=== PATIENT | female | born 1970 | race Caucasian/White ===

== ENCOUNTER → 2016-12-24 | Outpatient (CLI) | payer BC ==
--- NOTE | 2016-12-25 13:08 | MM ---
Reason for exam: screening (asymptomatic). Last mammogram was performed 1 year and 7 months ago. History: Family history of premenopausal breast cancer in sister, breast cancer in sister, and breast cancer in maternal aunt. Took hormonal contraceptives for 18 years. Physical Findings: A clinical breast exam by your physician is recommended on an annual basis and results should be correlated with mammographic findings. MG Screening Mammo w CAD Bilateral CC, MLO, and XCCL view(s) were taken. Prior study comparison: May 23, 2015, bilateral MG screening mammo w CAD. June 01, 2013, bilateral digital screening mammo w/CAD. The breast tissue is heterogeneously dense. This may lower the sensitivity of mammography. There is no discrete abnormality. No significant changes when compared with prior studies. ASSESSMENT: Negative, BI-RAD 1 RECOMMENDATION: Routine screening mammogram of both breasts in 1 year.
== END | disposition home or self-care (01) ==
LOC: RADMAMWWP 09:24
PROVIDERS: ATTEND Obstetrics & Gynecology
DX: Z12.31 Encounter for screening mammogram for malignant neoplasm of breast (principal)

== ENCOUNTER → 2018-12-23 | Outpatient (CLI) | payer BC ==
--- NOTE | 2018-12-24 09:31 | MM ---
Reason for exam: screening (asymptomatic). Last mammogram was performed 2 years ago. History: Family history of premenopausal breast cancer in sister, breast cancer in sister, and breast cancer in maternal aunt. Took hormonal contraceptives for 18 years. Physical Findings: A clinical breast exam by your physician is recommended on an annual basis and results should be correlated with mammographic findings. MG Screening Mammo w CAD Bilateral CC and MLO view(s) were taken. Prior study comparison: December 24, 2016, bilateral MG screening mammo w CAD. May 23, 2015, bilateral MG screening mammo w CAD. The breast tissue is heterogeneously dense. This may lower the sensitivity of mammography. There is no discrete abnormality. ASSESSMENT: Benign, BI-RAD 2 RECOMMENDATION: Routine screening mammogram of both breasts in 1 year.
== END | disposition home or self-care (01) ==
LOC: RADMAMWWP 07:16
PROVIDERS: ATTEND Family Medicine
DX: Z12.31 Encounter for screening mammogram for malignant neoplasm of breast (principal)
CPT/HCPCS: 77067

== ENCOUNTER → 2021-06-26 | Outpatient (CLI) | payer BC ==
--- NOTE | 2021-06-27 13:55 | MM ---
Reason for exam: screening (asymptomatic). Last mammogram was performed 2 years and 6 months ago. History: Patient is postmenopausal and is nulliparous. Family history of premenopausal breast cancer in sister, breast cancer in sister, and breast cancer in maternal aunt. Took hormonal contraceptives for 18 years. Physical Findings: A clinical breast exam by your physician is recommended on an annual basis and results should be correlated with mammographic findings. MG Screening Mammo w CAD Bilateral CC and MLO view(s) were taken. Prior study comparison: December 23, 2018, bilateral MG screening mammo w CAD. December 24, 2016, bilateral MG screening mammo w CAD. The breast tissue is heterogeneously dense. This may lower the sensitivity of mammography. Stable benign calcifications. There is no discrete abnormality. No significant changes when compared with prior studies. ASSESSMENT: Benign, BI-RAD 2 RECOMMENDATION: Routine screening mammogram of both breasts in 1 year.
== END | disposition home or self-care (01) ==
LOC: RADMAMWWP 06:55
PROVIDERS: ATTEND Family Medicine
DX: Z12.31 Encounter for screening mammogram for malignant neoplasm of breast (principal); Z78.0 Asymptomatic menopausal state; Z79.3 Long term (current) use of hormonal contraceptives; Z80.3 Family history of malignant neoplasm of breast
CPT/HCPCS: 77067

== ENCOUNTER → 2022-08-07 | Outpatient (CLI) | payer BC ==
--- NOTE | 2022-08-08 11:47 | MM ---
Reason for Exam: Screening (asymptomatic). Last mammogram was performed 1 year(s) and 2 month(s) ago. Patient History: Menarche at age 10. Patient has no children. Postmenopausal. Patient used Hormonal Contraceptives for 18 years. Maternal aunt had breast cancer, age 62. Sister (abdullahi) had breast cancer, age 46. Sister (dmitriy) had breast cancer, age 55. Risk Values: Stephanie 5 year model risk: 4.0%. NCI Lifetime model risk: 26.1%. Prior Study Comparison: 12/24/2016 Bilateral Screening Mammogram, [facility]. 12/23/2018 Bilateral Screening Mammogram, [facility]. 06/26/2021 Bilateral Screening Mammogram, [facility]. Tissue Density: The breast tissue is heterogeneously dense. This may lower the sensitivity of mammography. Findings: Analyzed By CAD. There is no suspicious group of microcalcifications or new suspicious mass in either breast. Benign round calcifications within both breasts. Stable chronic nodularity in the left breast. No significant change from prior exams. Overall Assessment: Benign, BI-RAD 2 Management: Screening Mammogram of both breasts in 1 year. A clinical breast exam by your physician is recommended on an annual basis and results should be correlated with mammographic findings. Electronically signed and approved by: Kofi Baker D.O.
== END | disposition home or self-care (01) ==
LOC: RADMAMWWP 14:53
PROVIDERS: ATTEND Family Medicine
DX: Z12.31 Encounter for screening mammogram for malignant neoplasm of breast (principal); Z78.0 Asymptomatic menopausal state; Z80.3 Family history of malignant neoplasm of breast
CPT/HCPCS: 77067

== ENCOUNTER → 2023-07-16 | Outpatient (CLI) | payer BC ==
[2023-07-16 16:38] LABS: Basophils # (A) 0.01 X 10*3/uL (0.00-0.10); Basophils % (A) 0.2 %; Blood Urea Nitrogen 12.4 mg/dL (9.0-27.0); Calcium 9.3 mg/dL (8.7-10.3); Chloride 107 mmol/L (96-109); Eosinophils # (A) 0.09 X 10*3/uL (0.04-0.35); Eosinophils % (A) 1.5 %; Glucose 92 mg/dL (70-110); HCT 38.4 % (37.2-46.3); HGB 12.9 d/dL (12.0-15.0); Lymphocytes # (A) 0.95 X 10*3/uL (0.90-5.00); Lymphocytes % (A) 16.3 %; MCH 29.7 pg (27.0-32.0); MCHC 33.6 d/dL (32.0-37.0); MCV 88.3 FL (80.0-97.0); Mean Platelet Volume 10.3 FL (9.5-12.2); Monocytes # (A) 0.53 X 10*3/uL (0.20-1.00); Monocytes % (A) 9.1 %; NRBC Per 100 WBC 0 X 10*3/uL (0.00-0.01); Neutrophils # (A) 4.22 X 10*3/uL (1.80-7.70); Neutrophils % (A) 72.6 %; Platelet Count 198 X 10*3/uL (140-440); Potassium 4.5 mmol/L (3.5-5.5); RBC 4.35 X 10*6/uL (4.10-5.20); RDW 12.1 % (11.5-14.5); Sodium 143 mmol/L (135-145); WBC 5.82 X 10*3/uL (4.50-10.00)
== END | disposition home or self-care (01) ==
LOC: LABPAT 11:37
PROVIDERS: ATTEND Orthopaedic Surgery Hand Surgery
DX: Z01.812 Encounter for preprocedural laboratory examination (principal); G56.01 Carpal tunnel syndrome, right upper limb
CPT/HCPCS: 80048; 85025

== ENCOUNTER → 2023-08-08 | Outpatient (CLI) | payer BC ==
--- NOTE | 2023-08-12 14:41 | MM ---
Reason for Exam: Screening (asymptomatic). Last screening mammogram was performed 12 month(s) ago. Patient History: Menarche at age 10. Patient has no children. Postmenopausal. Patient used Hormonal Contraceptives for 18 years. Maternal aunt had breast cancer, age 62. Sister (abdullahi) had breast cancer, age 46. Sister (dmitriy) had breast cancer, age 55. Risk Values: Stephanie 5 year model risk: 4.1%. NCI Lifetime model risk: 25.7%. Prior Study Comparison: 12/23/2018 Bilateral Screening Mammogram, [facility]. 06/26/2021 Bilateral Screening Mammogram, [facility]. 08/07/2022 Bilateral MG screening mammo w CAD, [facility]. Tissue Density: The breast tissue is heterogeneously dense. This may lower the sensitivity of mammography. Findings: Analyzed By CAD. Pattern appears symmetrical and stable. Benign calcifications present bilaterally. No significant interval changes are evident No suspicious groups of microcalcifications, spiculated or lobular masses, architectural distortion or other secondary signs of malignancy are mammographically apparent. Overall Assessment: Benign, BI-RAD 2 Management: Screening Mammogram of both breasts in 1 year. A negative mammogram report should not preclude additional follow up of suspicious palpable abnormalities. Patient should continue monthly self breast exam. A clinical breast exam by your physician is recommended on an annual basis and results should be correlated with mammographic findings. Electronically signed and approved by: Db Delaney D.O. Radiologis
== END | disposition home or self-care (01) ==
LOC: RADMAMWWP 14:20
PROVIDERS: ATTEND Family Medicine
DX: Z12.31 Encounter for screening mammogram for malignant neoplasm of breast (principal); Z78.0 Asymptomatic menopausal state; Z80.3 Family history of malignant neoplasm of breast
CPT/HCPCS: 77067

== ENCOUNTER 2023-08-13 11:33 | Day surgery (SDC) | payer BC ==
--- NOTE | 2023-08-12 12:32 | P.HPOR ---
History of Present Illness H&P Date: 08/12/23 Subjective: This is a 52 year old female that presents today for follow up evaluation regarding a several year history of progressively worsening right hand numbness and tingling mainly localized to the thumb, index and middle finger as well as right ring finger and index finger stiffness, locking and catching.She has tried bracing with no relief of her symptoms. She states the right hand often goes numb a daily basis especially when she is riding her bike. She underwent a left endoscopic carpal tunnel release and a left middle and ring finger A1 vinnie release 6 months ago with good relief and she has no symptoms of numbness on the left side. Physical Examination: RUE: AIN/PIN/Radial/Ulnar/Median motor intact. Radial/Ulnar/Median SILT. 2+/4 Radial/Ulnar pulses palpated. 5/5 APB, 5/5 FDI. Negative Finkelsteins, negative CMC grind, positive Durkan's compression. TTP over ring and index A1 vinnie with active locking and catching of the ring finger. Impression: 1.) Right carpal tunnel syndrome 2.) Right ring finger stenosing tenosynovitis 3.) Right index finger stenosing tenosynovitis Plan: Diagnosis and treatment options were discussed with the patient. She has failed conservative treatment for her symptoms and would like to pursue a right endoscopic versus open carpal tunnel release as well as a right ring and index finger A1 vinnie release. Risks and benefits of surgery including bleeding, infection, damage to surrounding tissue, need for further surgery, possible need to convert to open procedure, residual numbness were discussed and the patient wished to go forward with surgery. The patient was agreeable with this plan. CC: Joe Beebe MD -Giancarlo Hernandez DO Orthopedic Hand/Upper Extremity Surgeon Past Medical History Additional Past Medical History / Comment(s): Autoimmune Lupus. rt wrist arthritis , numbness to rt hand History of Any Multi-Drug Resistant Organisms: None Reported Additional Past Surgical History / Comment(s): Rhinoplasty. CTR left, Past Anesthesia/Blood Transfusion Reactions: No Reported Reaction Smoking Status: Former smoker - Past Family History Father Family Medical History: Cancer Mother Family Medical History: Congestive Heart Failure (CHF) Medications and Allergies Home Medications Medication Instructions Recorded Confirmed Type Hydroxychloroquine Sulfate 200 mg PO BID 12/06/22 08/07/23 History [Plaquenil] Immuplex (Supplement) 4 tab PO DAILY 12/06/22 08/07/23 History Ibuprofen [Motrin Ib] 200 mg PO DIRECTED PRN 08/07/23 08/07/23 History Allergies Allergy/AdvReac Type Severity Reaction Status Date / Time No Known Allergies Allergy Verified 08/07/23 13:18 Physical Examination Osteopathic Statement: *. No significant issues noted on an osteopathic structural exam other than those noted in the History and Physical/Consult.
[~2023-08-13 11:33] MED LIST: HYDROmorphone 0.5 MG/0.5 ML SYRINGE IVP PRN; LACTATED RINGERS 1,000 ML IV SCH; Pre Op ABX Message 1 EACH MISC MISCELLANE ONE
[2023-08-13] MEDS ORDERED: DEXAMETHASONE SOD PHOSPHATE 4 MG/ML 1 ML VIAL IVP ONE (12:31)
[2023-08-13] MEDS ORDERED: ONDANSETRON 4 MG/2 ML VIAL IVP ONE (12:31)
[2023-08-13] MEDS ORDERED: ONDANSETRON 4 MG/2 ML VIAL ONE (12:33)
[2023-08-13 12:46] VITALS: RESP 16; TEMP 97.6
[2023-08-13] MEDS ORDERED: BUPIVACAINE (PF) 0.5% 30 ML VIAL SQ ONE ×2 (13:17→13:23)
[2023-08-13] MEDS ORDERED: fentaNYL (PF) 50 MCG/ML 2 ML AMP ONE (13:17)
[2023-08-13] MEDS ORDERED: MIDAZOLAM 2 MG/2 ML VIAL ONE (13:17)
[2023-08-13] MEDS ORDERED: PROPOFOL 10 MG/ML 20 ML VIAL IV ONE (13:17)
[2023-08-13] MEDS ORDERED: LIDOCAINE 1% INJ 10MG/ML (20 ML MDV) SQ ONE ×2 (13:18→13:23)
--- NOTE | 2023-08-13 13:49 | P.OP ---
Date of Procedure: 08/13/23 Preoperative Diagnosis: 1.) Right carpal tunnel syndrome 2.) Right index finger stenosing tenosynovitis 3.) Right ring finger stenosing tenosynovitis Postoperative Diagnosis: 1.) Right carpal tunnel syndrome 2.) Right index finger stenosing tenosynovitis 3.) Right ring finger stenosing tenosynovitis Procedure(s) Performed: 1.) Right endoscopic carpal tunnel release 2.) Right index finger A1 vinnie release 3.) Right ring finger A1 vinnie release Anesthesia: MAC Surgeon: Giancarlo Hernandez Douper #1: Feliz Stout Estimated Blood Loss (ml): 0 Pathology: none sent Condition: stable Disposition: PACU Description of Procedure: This is a 53 year old female who presents today for a right endoscopic carpal tunnel release and right index and ring finger trigger finger releases after having failed conservative treatment in the past. Risks and benefits of surgery were discussed with the patient including bleeding, damage to surrounding tissue, infection, need to convert to open procedure, need for further surgery as well as risks of anesthesia including pulmonary embolism and even and the patient wished to proceed with surgical intervention. The patients was seen in the pre-operative area by myself. Consent and H&P were completed and updated. The correct extremity was marked in the pre-operative area by myself and all other questions were answered. Operative Narrative: The patient was brought to the operating room by the department of anesthesia. They remained on the portable stretcher and a rolling hand table was brought to the side of the operative extremity. Pre-operative time out was performed indicating the correct patient, procedure and laterality. All in the room agreed. The patient was then drifted off to sleep by the department of anesthesia. MAC anesthesia was utilized and a 50:50 mixture of 1% Lidocaine and 0.5% bupivacaine was injected into the subcutaneous tissues of the palmar skin, 8ccs total. A nonsterile tourniquet was then applied to the operative extremity and the right upper extremity was then prepped and draped in normal sterile fashion. The operative extremity was the exsanguinated with an esmarch bandage and the tourniquet was inflated to 250mmHg. 15 blade scalpel was utilized to make a transverse incision on the palmar skin just ulnar to the palmaris longus tendon at the level of the distal wrist crease. Ragnell retractor was then placed radially and blunt dissection was performed to reveal the distal forearm fascia. This was lifted with fine Chip pick ups and Sabir tenotomy scissors were then used to open the forearm fascia transversely and a double skin hook was then placed. Hamate finder was placed into the carpal tunnel and then sequential sized dilators were inserted followed by the synovial elevator to separate the flexor tenosynovium from the undersurface of the transverse carpal ligament and a washboard texture was felt. The Broadlinke endoscopic carpal tunnel release system gun was the then inserted into the carpal tunnel hugging the deep portion of the transverse carpal ligament in line with the base of the ring finger. Transverse fibers of the ligament were directly visualized. Pressure was applied on the palm to reveal the distal extent of the transverse carpal ligament. The blade was then deployed and the distal half of the transverse carpal ligament was released. The scope was then brought distal again and remaining transverse fibers were incised with the blade. The proximal half of the transverse carpal ligament was then divided and again the scope was advanced distal and remaining transverse fibers were incised with the blade. The radial and ulnar leaflets were directly visualized and mobile consistent with complete release. Tenotomy scissors were then utilized to release the remaining distal forearm fascia under direct visualization taking care to preserve the palmar cutaneous branch of the median nerve. Skin closure was performed with interrupted 4-0 Monocryl suture followed by steri strips. Attension was then drawn to the right index finger. Oblique incision was made at the base of the index finger. Blunt dissection was taken down through subcutaneous tissues and ragnell retractors were placed on the radial and ulnar boarders of the A1 vinnie. The A1 vinnie was then released under direct visualization from proximal to distal. The flexor tendons were the removed from the sheath and traction tenolysis was performed to seperate tenosynovial attachements. The finger was then ranged and smooth flexion/extension was appreciated. Attension was then drawn to the right ring finger. Oblique incision was made at the base of the ring finger. Blunt dissection was taken down through subcutaneous tissues and ragnell retractors were placed on the radial and ulnar boarders of the A1 vinnie. The A1 vinnie was then released under direct visualization from proximal to distal. The flexor tendons were the removed from the sheath and traction tenolysis was performed to seperate tenosynovial attachements. The finger was then ranged and smooth flexion/extension was appreciated. Palmar skin closure was performed with 4-0 nylon suture. Sterile dressing was applied consisting 4x4s, Webril, and an sekou bandage. Tourniquet was let down and the hand immediately was well perfused. The patient was then woken by the department of anesthesia and transferred to PACU in stable condition. Feliz WIGGINS was present for the case in its entirety and assisted in major portions of the case and protection of vital neurovascular structures. Giancarlo Hernandez D.O. Orthopedic Hand/Upper Extremity Surgeon
[2023-08-13 14:45] VITALS: BP 117/81; PULSE 78
== END 2023-08-13 14:53 | disposition home or self-care (01) ==
LOC: OR 11:33
PROVIDERS: ATTEND Orthopaedic Surgery Hand Surgery
DX: G56.01 Carpal tunnel syndrome, right upper limb (principal); M65.321 Trigger finger, right index finger; M65.341 Trigger finger, right ring finger; M65.841 Other synovitis and tenosynovitis, right hand; Z87.891 Personal history of nicotine dependence
CPT/HCPCS: 26055 ×2; 29848; J2250; J1100; J2405; J2001; J3010; J2704; J0665

== ENCOUNTER → 2024-08-10 | Outpatient (CLI) | payer BC ==
--- NOTE | 2024-08-12 07:51 | MM ---
Reason for Exam: Screening (asymptomatic). Last screening mammogram was performed 12 month(s) ago. Patient History: Menarche at age 10. Patient has no children. Postmenopausal. Patient used Hormonal Contraceptives for 18 years. Maternal aunt had breast cancer, age 62. Sister (abdullahi) had breast cancer, age 46. Sister (dmitriy) had breast cancer, age 55. Risk Values: Stephanie 5 year model risk: 4.3%. NCI Lifetime model risk: 25.2%. Prior Study Comparison: 06/26/2021 Bilateral Screening Mammogram, [facility]. 08/07/2022 Bilateral MG screening mammo w CAD, [facility]. 08/08/2023 Bilateral MG screening mammo w CAD, [facility]. Tissue Density: There are scattered areas of fibroglandular density. Findings: Analyzed By CAD. Right breast: There is no suspicious group of microcalcifications or new suspicious mass. Benign-appearing calcifications right breast. Left breast: There is no suspicious group of microcalcifications or new suspicious mass. Benign-appearing calcifications left breast. Overall Assessment: Benign, BI-RAD 2 Management: Screening Mammogram of both breasts in [address] [facility] will attempt to contact patient to return for supplemental views and ultrasound if indicated. Patient should continue monthly self-breast exams. A clinical breast exam by your physician is recommended on an annual basis. This exam should not preclude additional follow-up of suspicious palpable abnormalities. Note on Stephanie scores and lifetime risk: 1. A Stephanie score greater than 3% is considered moderate risk. If this is the case, consider specialist referral to assess eligibility for a risk reducing agent. 2. If overall lifetime risk for the development of breast cancer is 20% or higher, the patient may qualify for future screening with alternating mammogram and breast MRI. [facility], , 08/12/2024 7:48 AM. Electronically signed and approved by: Robel Tipton DO
== END | disposition home or self-care (01) ==
LOC: RADMAMWWP 13:34
PROVIDERS: ATTEND Family Medicine
DX: Z12.31 Encounter for screening mammogram for malignant neoplasm of breast
CPT/HCPCS: 77067